=== PATIENT | female | born 1970 | race Caucasian/White ===

== ENCOUNTER 2021-11-01 10:29 | Day surgery (SDC) | payer BC ==
[~2021-11-01 10:29] MED LIST: Lactated Ringers 1,000 ML IV SCH; Propofol 200 MG/20 ML SDV ONE; Sodium Chloride 0.9% 10 ML Syringe FLUSH PRN; Sodium Chloride 0.9% 2.5 ML Syringe FLUSH PRN; Sodium Chloride 0.9% 20 ML SDV IV PRN; fentaNYL 100 MCG/2 ML SDV ONE
[2021-11-01] MEDS ORDERED: Propofol 200 MG/20 ML SDV ONE ×2 (10:37→13:21)
[2021-11-01] MEDS ORDERED: fentaNYL 100 MCG/2 ML SDV ONE (10:37)
== END 2021-11-01 14:12 | disposition home or self-care (01) ==
LOC: MW.SDS 10:29
PROVIDERS: ATTEND Surgery
DX: Z12.11 Encounter for screening for malignant neoplasm of colon (principal); Z88.2 Allergy status to sulfonamides; Z87.891 Personal history of nicotine dependence; K57.30 Diverticulosis of large intestine without perforation or abscess without bleeding
CPT/HCPCS: 45378; 81025; J2704; J3010; J7120; 00812